=== PATIENT | male | born 1995 | race Caucasian/White ===

== ENCOUNTER 2023-03-07 19:42 | Emergency (ER) | payer OTHER, SELFPAY ==
[2023-03-07 19:47] VITALS: BP 168/86; PULSE 98; RESP 18; TEMP 37.2; O2SAT 95; BMI 34.7
--- NOTE | 2023-03-07 20:40 | ED.EAR ---
HPI - Ear Problem General Chief complaint: Ear Stated complaint: COVID+/LT EAR PAIN Time Seen by Provider: 03/07/23 20:36 Source: patient Mode of arrival: Ambulatory History of Present Illness HPI Narrative: 27-year-old male nonsmoker is absent of any chronic medical history. He had a dry hacking cough over the past few days and recently tested positive for COVID. He has been taking occasional Tylenol for symptoms and states there is no significant ongoing cough or shortness of breath. He is had some headache here and there but nothing significant. He denies any sore throat, nausea, vomiting or diarrhea. His primary complaint is that over the course of the past day or so he is had the development bilateral ear pain. He denies any trauma or injury. Denies any drainage or bleeding. Related Data Allergies Allergy/AdvReac Type Severity Reaction Status Date / Time No Known Drug Allergies Allergy Verified 03/07/23 19:51 Review of Systems Review of Systems Narrative: GENERAL: See HPI HEENT: See HPI RESPIRATORY: Denies dyspnea, cough, wheezing, hemoptysis, sputum. CARDIOVASCULAR: Denies chest pain, palpitations, orthopnea, edema, GASTROINTESTINAL: Denies nausea, vomiting, abdominal pain, diarrhea, constipation, melena. : Denies dysuria, frequency, incontinence, hematuria, urinary retention. MUSCULOSKELETAL: denies weakness, joint pain, or bony pain SKIN: Denies rash, skin lesions, or other NEUROLOGIC: Denies weakness, headache, numbness, change in speech, confusion, seizures, incoordination. PSYCHIATRIC: No concerning psychosocial issues. 12 point review of systems is negative except for those stated above Patient History Social History Smoking Status: Never smoker Smoking Status: Never smoker alcohol intake frequency: a few times a month Substance Use Type: does not use Exam Narrative Exam Narrative: GEN: AOx3 and in mild distress EYES: Pupils are equal, round, and reactive to light and accommodation. Extraoccular muscles are intact bilaterally. There is no subconjunctival hemorrhage or exudate. ENT: B/L TMs are slightly retracted and erythematous, minimal clear effusion. No perforation CHEST: Lungs are clear to auscultation bilaterally and free of wheezes, rales, or rhonchi. Heart rate is regular rhythm, there are no murmurs, clicks, rubs, or gallops. There is no chest wall tenderness. ABD: Abdomen is soft and nontender. There is no guarding or rebound. Bowel sounds are normal in all 4 quadrants. There is no mass or organomegaly. EXT: Full painless ROM of all extremities with no loss of sensation or strength. SKIN: Warm, pink, and dry. No erythema or rash Initial Vital Signs Initial Vital Signs: Vital Signs Temperature 99 F 03/07/23 19:47 Pulse Rate 98 H 03/07/23 19:47 Respiratory Rate 18 03/07/23 19:47 Blood Pressure 168/86 H 03/07/23 19:47 Pulse Oximetry 95 03/07/23 19:47 Oxygen Delivery Method Room Air 03/07/23 19:47 Course Vital Signs Vital signs: Vital Signs - 8 hr 03/07/23 19:47 Temperature 99 F Pulse Rate 98 H Respiratory Rate 18 Blood Pressure 168/86 H Pulse Oximetry 95 Oxygen Delivery Method Room Air Medical Decision Making [facility] Narrative Medical decision making narrative: [27] year old patient presents with known COVID presents with bilateral ear pain Multiple etiologies for patient's symptoms considered including, but not limited to: [Viral versus bacterial otitis] Prior Charts reviewed in our EMR Primary Historian: patient Patient with known COVID has the development of bilateral ear pain over the past 24 hours. He does have some erythema and retraction and minimal clear effusion but no bulging, no perforation, no drainage and no purulence effusion. No indication for antibiotics at this time. Patient encouraged to continue the use of [id number] antihistamines, anti-inflammatories and decongestants Patient's symptoms improved over duration of stay with above-stated therapies. Findings and discharge diagnosis discussed with patient/family followed by verbalization of understanding Return precautions discussed with patient/family whom verbalize understanding of diagnosis and plan Discharge Plan Departure Patient Disposition: Home Clinical Impression: Earache, COVID-19 Instructions: COVID-19 Activity Restrictions/Additional Instructions: *You have been diagnosed with [ COVID-19] *What to do: ?* per recommendations from the CDC and the [facility] Department of Health ?* stay home except to get medical care. ?Restrict activities outside your home, except for getting medical care. ?Do not go to work, school, or public areas. ?Avoid using public transportation, ride sharing, or taxis. ?* separate yourself from other people in your home. ?* call ahead before visiting your doctor ?* Wear a facemask ?* Cover your coughs and sneezes ?* Clean your hands often ?* Avoid sharing household items ?* Clean all high-touch services every day ?* Monitor your symptoms and seek prompt medical attention if your illness is worsening, particularly with difficulty in breathing. You may discontinue your isolation when: ?1. You have been fever-free for at least 24 hours without the use of fever reducing medication, AND ?2. Your symptoms are getting better, AND ?3. At least 5 days have passed since symptoms first appeared ?4. If you have fever, continue to stay home until fever resolves Individuals with laboratory confirmed COVID-19 who have not had any symptoms may discontinue home isolation when at least 5 days have passed since the date of their first COVID-19 diagnostic test and have had no subsequent illness You should notifiy any friends and family that have been in close contact *If up to date on COVID Vaccines, then they do not need to quarantine unless symptoms develop. Get tested on day 5 (or sooner if symptoms develop). Take precautions and watch for symptoms until day 10 *If NOT up to date on COVID Vaccines, then CDC recommends quarantine for at least 5 full days. Wear a well fitted mask at home if you must be around others. If they ?develop symptoms they should get tested. If they remain asymptomatic they should get tested on day 5. They should take precautions and monitor for symptoms until day 10. Stand Alone Forms: Patient Portal/API
== END 2023-03-07 23:40 | disposition home or self-care (01) ==
PROVIDERS: Emergency Provider Emergency Medicine
DX: U07.1 COVID-19 (principal); H92.03 Otalgia, bilateral
CPT/HCPCS: 99281

== ENCOUNTER → 2023-05-07 16:49 | Outpatient (CLI) | payer OTHER, SELFPAY ==
--- NOTE | 2023-05-07 16:51 | DI.MRI.S_ITS ---
PROCEDURE: MR BRAIN (PITUITARY) WWO CON INDICATIONS: 27-year-old male with elevated prolactin levels, fatigue TECHNIQUE: Noncontrast sagittal and axial FLAIR, axial gradient echo, axial diffusion and ADC through the brain. Thin-slice sagittal and coronal T1 spin echo, coronal T2 fast spin echo through the pituitary. After the administration contrast, optional dynamic coronal T1 spin echo, thin-slice coronal and sagittal T1 spin echo images through the pituitary fossa; axial and coronal and sagittal T1 spin echo with fat saturation through the brain. COMPARISON: None. FINDINGS: Image quality: Excellent. Pituitary Gland: Normal homogeneous in dynamic enhancement without nodular filling defect. Infundibulum is appropriate. No suprasellar mass lesion. Cavernous ICA flow void normal. Normal optic chiasm CSF Spaces: Ventricles are normal in size and shape. Basal cisterns are patent. No extra-axial fluid collections. Brain: No intracranial masses or hemorrhage. Triplett/white matter interface is normal. Brainstem appears normal. Diffusion-weighted sequence is unremarkable without evidence of acute infarct. Normal intravascular flow voids are present. Skull and face: Calvarial marrow is normal in signal. Orbits appear normal. Sinuses: Sinuses and mastoids are clear. IMPRESSION: Normal MRI of the brain and pituitary gland Approved by: Rodrigo Cardona M.D. on 05/08/2023 at 16:47
== END ==
PROVIDERS: Referring Provider Preventive Medicine Aerospace Medicine; Visit Provider Preventive Medicine Aerospace Medicine
DX: R89.1 Abnormal level of hormones in specimens from other organs, systems and tissues (principal)
CPT/HCPCS: 70553; A9579

== ENCOUNTER 2023-05-15 22:26 | Emergency (ER) | payer OTHER, SELFPAY ==
[2023-05-15 22:37] VITALS: BP 118/61; PULSE 105; RESP 18; TEMP 37.4; O2SAT 96; BMI 37.2
[2023-05-15] MEDS: ONDANSETRON 4 MG/2 ML INJ IV (23:00)
[2023-05-15] MEDS: SODIUM CHLORIDE 0.9% 1,000 ML 1000 ML IV (23:00)
[2023-05-15 23:13] LABS: Add Manual Diff / Slide Review NO; Basophils Absolute Auto 0 /uL (0-100); Basophils Percent Auto 0.3 % (0-2); Eosinophils Absolute Auto 0 /uL (0-450); Eosinophils Percent Auto 0.1 % (2-4); Hematocrit 47.6 % (41-53); Hemoglobin 16.3 g/dL (13.5-17.5); Lymphocytes Absolute Auto 500 /uL (1100-4500); Lymphocytes Percent Auto 3.5 % (25-40); Mean Corpuscular HGB Conc 34.3 % (30-36); Mean Corpuscular Hemoglobin 29.7 PG (26-34); Mean Corpuscular Volume 86.5 fL (80-100); Monocytes Absolute Auto 400 /uL (0-900); Monocytes Percent Auto 3.3 % (3-14); Neutrophils Absolute Auto 12300 /uL (1500-7000); Neutrophils Percent Auto 92.8 % (50-75); Platelet Count 207 X10^3/uL (150-400); Red Blood Cell Count 5.51 X10^6/uL (4.5-5.9); Red Cell Distribution Width 13.5 % (11.6-14.8); White Blood Cell Count 13.3 X10^3/uL (4.5-11.0)
[2023-05-15 23:19] LABS: Alanine Aminotransferase 100 IU/L (<50); Albumin 4.9 g/dL (3.5-5.0); Albumin Globulin Ratio 1.4 (1.0-2.8); Alkaline Phosphatase 70 U/L (38-126); Aspartate Aminotransferase 44 IU/L (17-59); BUN Creatinine Ratio 13.2 (6-22); Bilirubin Total 1.3 mg/dL (0.2-1.3); Blood Urea Nitrogen 20 mg/dL (9-20); Calcium 10.1 mg/dL (8.4-10.2); Carbon Dioxide 19 mmol/L (22-32); Chloride 105 mmol/L (98-107); Estimated Glomerular Filt Rate > 60 mL/min (>60); Globulin 3.5 g/dL (1.7-4.1); Glucose 117 mg/dL (70-100); HEMOLYSIS < 15 (0-50); Lipase 51 U/L (23-300); Potassium 4.3 mmol/L (3.4-5.1); Sodium 138 mmol/L (137-145); Total Protein 8.4 g/dL (6.3-8.2)
[2023-05-16] VITALS (9 sets, daily range): BP systolic 125; BP diastolic 65; PULSE 93–100; RESP 14–26; TEMP 36.7; O2SAT 96–99
--- NOTE | 2023-05-16 03:19 | ED.NAVMDI ---
HPI - Nausea/Vomiting/Diarrhea General Chief complaint: Nausea/Vomiting/Diarrhea Stated complaint: NVD Time Seen by Provider: 05/16/23 03:19 Source: patient Mode of arrival: Ambulatory History of Present Illness HPI Narrative: 27-year-old otherwise totally healthy young man, active [employer] who presents with acute onset nausea vomiting and diarrhea. It started at approximately 10:00 a.m. yesterday morning with severe nonbloody diarrhea and progressed to significant episodes of vomiting. He has continued to have both vomiting and diarrhea throughout the day. He also describes a low back to right flank pain that developed after the emesis. He became diaphoretic with a vomiting but does not describe significant fevers. He is a low-grade headache, no cough, chest pain, palpitations, lower extremity edema, dysuria Related Data Previous Rx's Medication Instructions Recorded ondansetron 4 mg disintegrating 4 mg PO Q8H PRN nausea and 05/16/23 tablet vomiting #14 tabs Allergies Allergy/AdvReac Type Severity Reaction Status Date / Time No Known Drug Allergies Allergy Verified 03/07/23 19:51 Review of Systems Review of Systems Narrative: Pertinent positive and negative findings as per HPI Patient History Social History Smoking Status: Never smoker Smoking Status: Never smoker alcohol intake frequency: a few times a month Substance Use Type: does not use Exam Initial Vital Signs Initial Vital Signs: Vital Signs Temperature 99.3 F 05/15/23 22:37 Pulse Rate 105 H 05/15/23 22:37 Respiratory Rate 18 05/15/23 22:37 Blood Pressure 118/61 05/15/23 22:37 Pulse Oximetry 96 05/15/23 22:37 Oxygen Delivery Method Room Air 05/15/23 22:37 General: Patient appears to feel unwell, he is pale, deep circles under his eyes appears dehydrated but he is Able to give a complete and coherent history. Well-nourished well-developed HEENT: Dry mucous membranes, normal sclera with reactive pupils, Respiratory: Lungs are clear to auscultation, no wheezing no rales no rhonchi. Full and symmetrical air movement Cardiac: Regular rate and rhythm no murmurs no bruits Abdomen: Soft, mild periumbilical tenderness moderate deep right lower quadrant tenderness. He has some tenderness the right side low back localized between flank and paraspinous muscle without any skin changes Skin: Warm and dry, no rashes Neurologic: Grossly neurologically intact with no obvious asymmetries or abnormalities Extremities: No trauma, well perfused Psych: Cooperative, appropriate insight and affect Course Orders Ordered: ED Orders 05/15/23 22:55 Complete Blood Count AUTO DIFF Stat Comprehensive Metabolic Panel Stat Lipase Stat 05/16/23 03:26 CT abdomen pelvis w con Stat 05/16/23 04:48 Urinalysis and Microscopic Stat Hydromorphone HCl (Hydromorphone 0.5 Mg Inj) 0.5 mg IV Q15MIN PRN PRN Reason: Pain, Last Admin: 05/16/23 03:38 Dose: 0.5 mg Documented By: RASHID Ondansetron HCl (Ondansetron 4 Mg Odt) 4 mg PO NOW PRN PRN Reason: Nausea And Vomiting Ondansetron HCl (Ondansetron 4 Mg/2 Ml Inj) 4 mg IV NOW PRN PRN Reason: Nausea And Vomiting Last Admin: 05/15/23 23:00 Dose: 4 mg Documented By: RASHID Discontinued Medications Sodium Chloride (Normal Saline 0.9%) 1,000 mls @ 1,000 mls/hr IV BOLUS ONE Stop: 05/16/23 00:56 Last Infusion: 05/16/23 00:00 Dose: Infused Documented By: Admin: 05/15/23 23:00 Dose: 1,000 mls/hr Documented By: RASHID Sodium Chloride (Normal Saline 0.9%) 1,000 mls @ 1,000 mls/hr IV BOLUS ONE Stop: 05/16/23 04:24 Last Infusion: 05/16/23 04:37 Dose: Infused Documented By: Admin: 05/16/23 03:37 Dose: 1,000 mls/hr Documented By: RASHID Ondansetron HCl (Ondansetron 4 Mg/2 Ml Inj) 4 mg IV NOW ONE Stop: 05/16/23 03:26 Last Admin: 05/16/23 03:38 Dose: 4 mg Documented By: RASHID Vital Signs Vital signs: Vital Signs - 8 hr 05/15/23 22:37 Temperature 99.3 F Pulse Rate 105 H Respiratory Rate 18 Blood Pressure 118/61 Pulse Oximetry 96 Oxygen Delivery Method Room Air MDM - Nausea/Vomiting/Diarrhea Lab Data 05/15/23 22:55 05/15/23 22:55 Labs: Lab Results 05/15/23 05/16/23 Range/Units 22:55 04:48 WBC 13.3 H (4.5-11.0) X10^3/uL RBC 5.51 (4.5-5.9) X10^6/uL Hgb 16.3 (13.5-17.5) g/dL Hct 47.6 (41-53) % MCV 86.5 (80-100) fL MCH 29.7 (26-34) PG MCHC 34.3 (30-36) % RDW 13.5 (11.6-14.8) % Plt Count 207 (150-400) X10^3/uL Neut % (Auto) 92.8 H (50-75) % Lymph % (Auto) 3.5 L (25-40) % [place] % (Auto) 3.3 (3-14) % Eos % (Auto) 0.1 L (2-4) % Baso % (Auto) 0.3 (0-2) % Neut # (Auto) 42553 H (6702-0009) /uL Lymph # (Auto) 500 L (5150-2176) /uL [place] # (Auto) 400 (0-900) /uL Eos # (Auto) 0 (0-450) /uL Baso # (Auto) 0 (0-100) /uL Sodium 138 (137-145) mmol/L Potassium 4.3 (3.4-5.1) mmol/L Chloride 105 (98-107) mmol/L Carbon Dioxide 19 L (22-32) mmol/L BUN 20 (9-20) mg/dL Creatinine 1.52 H (0.66-1.25) mg/dL Estimated GFR > 60 (>60) mL/min BUN/Creatinine Ratio 13.2 (6-22) Glucose 117 H (70-100) mg/dL Calcium 10.1 (8.4-10.2) mg/dL Total Bilirubin 1.3 (0.2-1.3) mg/dL AST 44 (17-59) IU/L ALT 100 H (<50) IU/L Alkaline Phosphatase 70 (38-126) U/L Total Protein 8.4 H (6.3-8.2) g/dL Albumin 4.9 (3.5-5.0) g/dL Globulin 3.5 (1.7-4.1) g/dL Albumin/Globulin Ratio 1.4 (1.0-2.8) Lipase 51 (23-300) U/L Urine Color Yellow Urine Appearance Clear Urine pH 5.0 (4.5-8.0) Ur Specific [place] 1.015 (1.000-1.035) Urine Protein Negative (Negative) Urine Glucose (UA) Negative (Negative) g/dL Urine Ketones Trace H (NEGATIVE) Urine Occult Blood Negative (Negative) Urine Nitrate Negative (Negative) Urine Bilirubin Negative (NEGATIVE) Urine Urobilinogen 0.2 (0.2) E.U./dL Ur Leukocyte Esterase Negative (NEGATIVE) MDM Narrative Medical decision making narrative: CC: Acute onset abdominal pain with nausea vomiting and diarrhea Data collected from: patient Differential considered: Gastroenteritis, bowel obstruction, appendicitis, kidney stone Exam documented above, pertinent findings include: Moderate dehydration, moderate abdominal pain with right lower quadrant tenderness unclear if he also has right flank pain or simply some muscles pulled with the physical effort of his vomiting. Lab Test results independently reviewed as above. Pertinent findings: CBC shows a white count at 13.3 with significant left shift neutrophils are 92.8 Chemistries are notable for a creatinine at 1.5. Slightly elevated ALT at 100. Lipase is normal at 51 Urine does not show significant effect Imaging studies independently reviewed: CT scan of the abdomen does not suggest gallbladder disease, colitis, appendicitis, pyelonephritis or hydronephrosis/kidney stone Treatments: 2 L of fluid, Zofran, Dilaudid Discussion: Patient is feeling better, he is able to keep water down. Abdominal pain has improved slightly with fluids. He still has a low-grade headache in the low-grade back pain. Will give him Toradol to help with those. Reviewed CT findings and lab findings with him. I believe at this point he is safe for discharge home this most likely is a gastroenteritis given the negative CT scan. We did talk about appendicitis how sometimes it will continue to get worse and I did encourage him to return if symptoms are not improving over the next 12-24 hours. A prescription for Zofran will be sent to [facility]. Questions are answered and he is safe for discharge Discharge Plan Departure Patient Disposition: Home Clinical Impression: Gastroenteritis Instructions: DI for Viral Gastroenteritis -- Adult, DI for Appendicitis -- Adult Activity Restrictions/Additional Instructions: Thank you for coming in today You are significantly dehydrated and responded nicely to 2 L of fluid as well as the nausea medicine. I gave you a dose of Toradol through your IV to help with the headache and the low back pain. Based on the CT scan, I do not think you have appendicitis however, appendicitis can sometimes be a bit tricky. I have given you some discharge instructions to educate you about appendicitis. If you are having increasing pain particularly in the right lower quadrant, fevers or generally getting worse it is appropriate to return to the ER for further evaluation. 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 You were also sent home with a couple of pills if you need it before the pharmacy opens. Prescriptions: New ondansetron 4 mg tablet,disintegrating 4 mg PO Q8H PRN (Reason: nausea and vomiting) Qty: 14 0RF Stand Alone Forms: Patient Portal/API
--- NOTE | 2023-05-16 03:26 | DI.CT.S_ITS ---
PROCEDURE: CT ABDOMEN PELVIS W CON INDICATIONS: RLQ pain, N/V/D TECHNIQUE: After the administration of intravenous contrast, axial sections acquired from the lung bases to the pubic symphysis. Coronal and sagittal reformats were performed. For radiation dose reduction, the following was used: automated exposure control, adjustment of mA and/or kV according to patient size. COMPARISON: None. FINDINGS: Image quality: Excellent. Lung bases: Unremarkable. Heart: No significant findings. ABDOMEN: Liver: Unremarkable. Gallbladder: Possible noncalcified cholelithiasis. Biliary ducts: Unremarkable. Pancreas: Unremarkable. Spleen: Unremarkable. Adrenal Glands: Unremarkable. Kidneys and Ureters: Unremarkable. Stomach and Bowel: Stomach, small bowel loops, and colon are unremarkable. Normal appendix. Peritoneum: No abnormal intraperitoneal fluid. No free air. Ventral Wall: No hernias. Abdominal Nodes: No retroperitoneal or mesenteric adenopathy by size criteria. Vessels: Aorta and inferior vena cava are normal in size. PELVIS: Pelvic Organs: Unremarkable. Bladder: Unremarkable. Pelvic Nodes: No enlarged lymph nodes. Miscellaneous: No hernias are seen. Bones: Unremarkable. IMPRESSION: 1. The appendix is normal. No acute findings within the abdomen or pelvis. 2. Possible noncalcified cholelithiasis without evidence of acute cholecystitis. Findings are concordant with preliminary interpretation provided by [facility]. Dictated by: Eriberto Del Castillo M.D. on 05/16/2023 at 8:19 Approved by: Eriberto Del Castillo M.D. on 05/16/2023 at 8:20
[2023-05-16] MEDS: SODIUM CHLORIDE 0.9% 1,000 ML 1000 ML IV (03:37)
[2023-05-16] MEDS: HYDROMORPHONE 0.5 MG INJ IV (03:38)
[2023-05-16] MEDS: ONDANSETRON 4 MG/2 ML INJ IV (03:38)
[2023-05-16 04:55] LABS: Appearance Urine UA CLEAR; Bilirubin Urine UA NEGATIVE (NEGATIVE); Color Urine UA YELLOW; Glucose Urine UA NEGATIVE (Negative); Ketones Urine UA TRACE (NEGATIVE); Leukocyte Esterase Urine UA NEGATIVE (NEGATIVE); Nitrite Urine UA NEGATIVE (Negative); Occult Blood Urine UA NEGATIVE (Negative); Protein Urine UA NEGATIVE (Negative); Specific Gravity Urine UA 1.015 (1.000-1.035); Urobilinogen Urine UA 0.2 E.U./dL (0.2)
[2023-05-16 05:06] LABS: Bacteria Urine None Seen; RBC Urine None Seen (0-5/HPF); Squamous Epithelial Cell Urine None Seen (0-5/HPF); WBC Urine None Seen (0-5/HPF)
[2023-05-16 05:07] LABS: Culture Indicated Urine Cult Not Indicated
[2023-05-16] MEDS: KETOROLAC 30 MG/ML VIAL 15 MG IV (05:47)
== END 2023-05-16 05:57 | disposition home or self-care (01) ==
PROVIDERS: Emergency Provider Emergency Medicine
DX: K52.9 Noninfective gastroenteritis and colitis, unspecified (principal); M54.9 Dorsalgia, unspecified; R51.9 Headache, unspecified; E86.0 Dehydration
CPT/HCPCS: 36415; 74177; 80053; 81001; 83690; 85025; 96361; 96374; 96375; 96376; 99284; J1170; J1885; J2405; Q9967

== ENCOUNTER → 2023-06-19 07:19 | Outpatient (CLI) | payer OTHER, SELFPAY ==
[2023-06-19 08:44] LABS: Estradiol, Total 37.3 pg/mL
== END ==
PROVIDERS: Referring Provider Urology; Visit Provider Urology
DX: R53.83 Other fatigue (principal)
CPT/HCPCS: 36415; 82670; 83002

== ENCOUNTER → 2023-08-11 07:57 | Outpatient (CLI) | payer OTHER, SELFPAY ==
[2023-08-11 10:04] LABS: Testosterone 390 ng/dL (132-813)
== END ==
PROVIDERS: Referring Provider Urology; Visit Provider Urology
DX: R89.1 Abnormal level of hormones in specimens from other organs, systems and tissues (principal)
CPT/HCPCS: 36415; 84403

== ENCOUNTER 2024-03-23 19:49 | Emergency (ER) | payer OTHER, SELFPAY ==
[2024-03-23 19:54] VITALS: BP 169/94; PULSE 110; RESP 16; TEMP 37.2; O2SAT 95; BMI 39.8
--- NOTE | 2024-03-23 20:13 | DI.RAD.S_ITS ---
PROCEDURE: XR ABDOMEN 1V INDICATIONS: Generalized abdominal pain TECHNIQUE: One view of the abdomen acquired. COMPARISON: None. FINDINGS: Surgical changes and devices: None. Bowel: Bowel gas pattern is normal. Soft tissues: No suspicious abdominal calcifications. Visualized solid organ contours appear normal in size. Bones: No suspicious bony lesions. IMPRESSION: Nonobstructive bowel gas pattern. No gross free air. No significant fecal burden. No abnormal calcifications. Dictated by: Sean Palmer M.D. on 03/23/2024 at 20:31 Approved by: Sean Palmer M.D. on 03/23/2024 at 20:32
[2024-03-23 20:20] LABS: Add Manual Diff / Slide Review NO; Basophils Absolute Auto 100 /uL (0-100); Basophils Percent Auto 0.8 % (0-2); Eosinophils Absolute Auto 100 /uL (0-450); Eosinophils Percent Auto 0.9 % (2-4); Hematocrit 49.9 % (41-53); Hemoglobin 17.3 g/dL (13.5-17.5); Lymphocytes Absolute Auto 2500 /uL (1100-4500); Lymphocytes Percent Auto 24.7 % (25-40); Mean Corpuscular HGB Conc 34.7 % (30-36); Mean Corpuscular Hemoglobin 29.9 PG (26-34); Mean Corpuscular Volume 86.2 fL (80-100); Monocytes Absolute Auto 700 /uL (0-900); Monocytes Percent Auto 6.6 % (3-14); Neutrophils Absolute Auto 6800 /uL (1500-7000); Platelet Count 256 X10^3/uL (150-400); Red Blood Cell Count 5.79 X10^6/uL (4.5-5.9); Red Cell Distribution Width 14.1 % (11.6-14.8); White Blood Cell Count 10.2 X10^3/uL (4.5-11.0)
[2024-03-23 20:29] LABS: Alanine Aminotransferase 107 IU/L (<50); Albumin 4.5 g/dL (3.5-5.0); Alkaline Phosphatase 76 U/L (38-126); Aspartate Aminotransferase 60 IU/L (17-59); BUN Creatinine Ratio 8.3 (6-22); Bilirubin Total 0.8 mg/dL (0.2-1.3); Blood Urea Nitrogen 10 mg/dL (9-20); Calcium 9.6 mg/dL (8.4-10.2); Carbon Dioxide 24 mmol/L (22-32); Chloride 104 mmol/L (98-107); Estimated Glomerular Filt Rate > 60 mL/min (>60); Globulin 2.9 g/dL (1.7-4.1); Glucose 142 mg/dL (70-100); HEMOLYSIS 26 (0-50); Sodium 137 mmol/L (137-145); Total Protein 7.4 g/dL (6.3-8.2)
[2024-03-23 20:30] VITALS: PULSE 96; O2SAT 96
[2024-03-23 20:30] LABS: Albumin Globulin Ratio 1.6 (1.0-2.8); Lipase 163 U/L (23-300)
[2024-03-23 21:00] VITALS: BP 184/89; PULSE 91; O2SAT 96
--- NOTE | 2024-03-23 21:17 | ED_ITS ---
HPI - General Adult General Chief complaint: Abdominal Pain Stated complaint: intense abd pain Time Seen by Provider: 03/23/24 20:12 Source: patient Mode of arrival: Ambulatory History of Present Illness HPI narrative: Patient is a 28-year-old male who is here for evaluation of just under 24 hours of what he describes as fairly severe abdominal discomfort. Has had multiple episodes of diarrhea throughout the day. No urinary symptoms. No recent travel. No recent antibiotics. No vomiting. Did have fevers earlier today. Stated that the pain initially started in his epigastric region is now moved down to his right side. Related Data Previous Rx's Medication Instructions Recorded ondansetron 4 mg disintegrating 4 mg PO Q8H PRN nausea and 05/16/23 tablet vomiting #14 tabs Allergies Allergy/AdvReac Type Severity Reaction Status Date / Time No Known Drug Allergies Allergy Verified 03/07/23 19:51 Review of Systems Review of Systems Narrative: See HPI Patient History Social History Smoking Status: Never smoker Smoking Status: Never smoker alcohol intake frequency: a few times a month Substance Use Type: does not use Exam Initial Vital Signs Initial Vital Signs: Vital Signs Temperature 99 F 03/23/24 19:54 Pulse Rate 110 H 03/23/24 19:54 Respiratory Rate 16 03/23/24 19:54 Blood Pressure 169/94 H 03/23/24 19:54 Pulse Oximetry 95 03/23/24 19:54 Oxygen Delivery Method Room Air 03/23/24 19:54 Const General: cooperative and No ill appearing Resp Effort & Inspection: normal respiratory effort Cardio Rate: regular rate GI Inspection: normal to inspection and non-distended Palpation: soft, No firm, No guarding and tender Back/Spine/Pelvis Back: No CVA tenderness Skin General: no rashes or lesions noted Neuro General: patient alert, patient awake and moves all extremities Course Orders Ordered: ED Orders 03/23/24 20:08 Complete Blood Count AUTO DIFF Stat Comprehensive Metabolic Panel Stat Lipase Stat 03/23/24 20:13 XR abdomen 1V Stat 03/23/24 21:16 CT abdomen pelvis w con Stat Discontinued Medications Ketorolac Tromethamine (Ketorolac 30 Mg/Ml Vial) 15 mg IV NOW ONE Stop: 03/23/24 21:17 Last Admin: 09/29/24 21:35 Dose: 15 mg Documented By: RAFA Vital Signs Vital signs: Vital Signs - 8 hr 03/23/24 19:54 03/23/24 20:30 03/23/24 21:00 Temperature 99 F Pulse Rate 110 H 96 H Respiratory Rate 16 Blood Pressure 169/94 H 184/89 H Pulse Oximetry 95 96 Oxygen Delivery Method Room Air 03/23/24 21:00 03/23/24 21:30 03/23/24 21:38 Temperature Pulse Rate 91 H 92 H Respiratory Rate Blood Pressure 169/85 H Pulse Oximetry 96 97 Oxygen Delivery Method 03/23/24 21:38 03/23/24 22:18 Temperature Pulse Rate 86 82 Respiratory Rate 14 Blood Pressure 183/101 H Pulse Oximetry 96 96 Oxygen Delivery Method Room Air Medical Decision Making Lab Data Lab results reviewed: Yes I reviewed the patient's lab results. 03/23/24 20:08 03/23/24 20:08 Labs: Lab Results 03/23/24 Range/Units 20:08 WBC 10.2 (4.5-11.0) X10^3/uL RBC 5.79 (4.5-5.9) X10^6/uL Hgb 17.3 (13.5-17.5) g/dL Hct 49.9 (41-53) % MCV 86.2 (80-100) fL MCH 29.9 (26-34) PG MCHC 34.7 (30-36) % RDW 14.1 (11.6-14.8) % Plt Count 256 (150-400) X10^3/uL Neut % (Auto) 67.0 (50-75) % Lymph % (Auto) 24.7 L (25-40) % [place] % (Auto) 6.6 (3-14) % Eos % (Auto) 0.9 L (2-4) % Baso % (Auto) 0.8 (0-2) % Neut # (Auto) 6800 (8354-6351) /uL Lymph # (Auto) 2500 (4248-0956) /uL [place] # (Auto) 700 (0-900) /uL Eos # (Auto) 100 (0-450) /uL Baso # (Auto) 100 (0-100) /uL Sodium 137 (137-145) mmol/L Potassium 4.0 (3.4-5.1) mmol/L Chloride 104 (98-107) mmol/L Carbon Dioxide 24 (22-32) mmol/L BUN 10 (9-20) mg/dL Creatinine 1.20 (0.66-1.25) mg/dL Estimated GFR > 60 (>60) mL/min BUN/Creatinine Ratio 8.3 (6-22) Glucose 142 H (70-100) mg/dL Calcium 9.6 (8.4-10.2) mg/dL Total Bilirubin 0.8 (0.2-1.3) mg/dL AST 60 H (17-59) IU/L ALT 107 H (<50) IU/L Alkaline Phosphatase 76 (38-126) U/L Total Protein 7.4 (6.3-8.2) g/dL Albumin 4.5 (3.5-5.0) g/dL Globulin 2.9 (1.7-4.1) g/dL Albumin/Globulin Ratio 1.6 (1.0-2.8) Lipase 163 (23-300) U/L Imaging Data CT scan - abdomen/pelvis: Radiologist's Impression: PROCEDURE: CT ABDOMEN PELVIS W CON INDICATIONS: Right lower quadrant abdominal pain TECHNIQUE: After the administration of intravenous contrast, axial sections acquired from the lung bases to the pubic symphysis. Coronal and sagittal reformats were performed. For radiation dose reduction, the following was used: automated exposure control, adjustment of mA and/or kV according to patient size. COMPARISON: [facility], CT, CT ABDOMEN PELVIS W CON, 05/16/2023, 3:40. FINDINGS: Image quality: Diagnostic. Lower Chest: No significant findings. ABDOMEN: Liver: No solid mass. Gallbladder: No radiopaque gallstones or wall thickening. Biliary ducts: No biliary dilation. Pancreas: No ductal dilation. Spleen: Size is within normal limits. Adrenal Glands: No adrenal nodules. Kidneys and Ureters: No hydronephrosis. No solid mass. No complex renal cystic lesion which requires follow up. Stomach and Bowel: Normal colonic caliber, without significant wall thickening. Appendix is visualized in right lower quadrant and is within normal limits. No abscess collection. Peritoneum: No abnormal intraperitoneal fluid. No free air. Ventral Wall: No significant ventral hernia. Abdominal Nodes: No retroperitoneal or mesenteric adenopathy by size criteria. Vessels: Aorta and inferior vena cava are normal in size. PELVIS: Pelvic Organs: Unremarkable. Bladder: No bladder wall thickening, accounting for underdistention. Pelvic Nodes: No enlarged lymph nodes. Miscellaneous: No inguinal hernias are seen. Bones: No aggressive osseous abnormality. IMPRESSION: 1. No bowel obstruction or abnormal bowel wall thickening. Normal appendix. No free fluid or free air. 2. No acute inflammatory process is seen in abdomen or pelvis. Abdominal x-ray: Radiologist's Impression: PROCEDURE: XR ABDOMEN 1V INDICATIONS: Generalized abdominal pain TECHNIQUE: One view of the abdomen acquired. COMPARISON: None. FINDINGS: Surgical changes and devices: None. Bowel: Bowel gas pattern is normal. Soft tissues: No suspicious abdominal calcifications. Visualized solid organ contours appear normal in size. Bones: No suspicious bony lesions. IMPRESSION: Nonobstructive bowel gas pattern. No gross free air. No significant fecal burden. No abnormal calcifications. MDM Narrative Medical decision making narrative: Labs unremarkable, CT scans unremarkable, has a benign abdominal exam. He has been having diarrhea over the past couple days. The discomfort that he is having potentially could be the peristalsis related to the diarrhea. No indication for admission to the hospital or surgical consultation emergently. Will discharge patient home with return precautions. He expressed understanding and agreement with the plan. Discharge Plan Departure Patient Disposition: Home Clinical Impression: Abdominal pain Instructions: DI for Abdominal Pain-Adult Activity Restrictions/Additional Instructions: Workup here in the ER is very reassuring. I suspect that your symptoms will be improving over the next 24-48 hours. Be sure that you were increasing your fluid intake. Return to the emergency department for new symptoms. Prescriptions: No Action ondansetron 4 mg tablet,disintegrating 4 mg PO Q8H PRN (Reason: nausea and vomiting) Qty: 14 0RF Referrals: [facility] [Primary Care Provider] - Stand Alone Forms: Patient Portal/API
[2024-03-23 21:30] VITALS: PULSE 92; O2SAT 97
[2024-03-23] MEDS: KETOROLAC 30 MG/ML VIAL 15 MG IV (21:35)
[2024-03-23 21:38] VITALS: BP 169/85; PULSE 86; O2SAT 96
[2024-03-23 22:18] VITALS: BP 183/101; PULSE 82; RESP 14; O2SAT 96
== END 2024-03-23 22:23 | disposition home or self-care (01) ==
PROVIDERS: Emergency Provider Emergency Medicine
DX: R10.9 Unspecified abdominal pain (principal); R19.7 Diarrhea, unspecified
CPT/HCPCS: 36415; 74018; 74177; 80053; 83690; 85025; 96374; 99284; J1885; Q9967